=== PATIENT | female | born 1965 | race Caucasian/White ===

== ENCOUNTER 2017-08-01 16:56 | Emergency (ER) | payer MEDICAID ==
[~2017-08-01] VITALS: Ht 165.1 cm; Wt 177.0 kg
[2017-08-01 18:28] LABS: BASOPHILS % (AUTO) 0.4 % (0-1); EOSINOPHILS # (AUTO) 0.1 X10'3 (0-0.9); EOSINOPHILS % (AUTO) 0.8 % (0-6); HEMATOCRIT 41.2 % (35.0-45.0); HEMOGLOBIN 14.2 g/dl (12.0-16.0); LYMPHOCYTES # (AUTO) 1.7 X10'3 (1.1-4.8); LYMPHOCYTES % (AUTO) 17.8 % (21-51); MEAN CORPUSCULAR HEMOGLOBIN 29.3 PG (27.0-31.0); MEAN CORPUSCULAR HGB CONC 34.5 % (33.0-36.5); MEAN CORPUSCULAR VOLUME 84.9 FL (78-98); MEAN PLATELET VOLUME 7.5 FL (7.4-10.4); MONOCYTES # (AUTO) 0.5 X10'3 (0-0.9); MONOCYTES % (AUTO) 4.8 % (2-12); NEUTROPHILS # (AUTO) 7.4 X10'3 (1.8-7.7); NEUTROPHILS % (AUTO) 76.2 % (42-75); PLATELET COUNT 207 X10'3 (140-440); RED BLOOD COUNT 4.86 X10'6 (4.20-5.60); RED CELL DISTRIBUTION WIDTH 13.7 % (11.5-14.5); WHITE BLOOD COUNT 9.6 X10'3 (4.5-11.0)
[2017-08-01 18:34] VITALS: BP 167/83
[2017-08-01 18:38] LABS: PARTIAL THROMBOPLASTIN TIME 26 SECONDS (22-32); PROTHROMBIN TIME 10.3 SECONDS (9.0-12.0)
[2017-08-01 18:44] LABS: ALANINE AMINOTRANSFERASE 32 U/L (12-78); ALBUMIN 3.6 G/DL (3.4-5.0); ALBUMIN/GLOBULIN RATIO 0.9 (1.1-1.5); ALKALINE PHOSPHATASE 111 IU/L (46-116); ANION GAP 8 (8-16); ASPARTATE AMINO TRANSFERASE 8 U/L (10-37); BILIRUBIN,TOTAL 0.3 MG/DL (0.1-1.0); BLOOD UREA NITROGEN 15 MG/DL (7-18); BUN/CREATININE RATIO 21.7 (6.6-38.0); CALCIUM 9.9 MG/DL (8.5-10.1); CHLORIDE 104 MMOL/L (99-107); CREATININE 0.69 MG/DL (0.40-0.90); GLUCOSE 196 MG/DL (70-104); POTASSIUM 4.2 MMOL/L (3.5-5.1); SODIUM 141 MMOL/L (135-145); TOTAL CARBON DIOXIDE 28.9 MMOL/L (24-32); TOTAL PROTEIN 7.6 G/DL (6.4-8.2); eGFR 90 ML/MIN
== END 2017-08-01 19:19 | disposition home or self-care (01) ==
LOC: ER 16:58
DX: R00.2 Palpitations (principal); I10 Essential (primary) hypertension
CPT/HCPCS: 36415; 71045; 80053; 84484; 85025; 85610; 85730; 93005; 99285

== ENCOUNTER 2017-08-31 14:17 | Emergency (ER) | payer MEDICAID ==
[~2017-08-31] VITALS: Ht 162.6 cm; Wt 171.0 kg
[2017-08-31 14:23] VITALS: BP 143/68
[2017-08-31] MEDS ORDERED: TETanus/Pertussis (Acell)/Diphther VAC/PF (Tdap-Adult) 0.5ml syringe IM ONE (14:55)
[2017-08-31] MEDS ORDERED: LIDOcaine 1% 30ml preserv. free vial IJ ONE (14:55)
[2017-08-31] MEDS ORDERED: LIDOcaine 1%/PF 5ML 10 MG/ML VIAL IJ ONE (15:00)
== END 2017-08-31 15:43 | disposition home or self-care (01) ==
LOC: ER 14:20
DX: S90.851A Superficial foreign body, right foot, initial encounter (principal); M79.5 Residual foreign body in soft tissue; I10 Essential (primary) hypertension; G89.29 Other chronic pain; Z98.51 Tubal ligation status; W45.8XXA Other foreign body or object entering through skin, initial encounter; Y93.89 Activity, other specified; Y92.89 Other specified places as the place of occurrence of the external cause; Y99.8 Other external cause status
CPT/HCPCS: 10120; 90471; 90715; 99284; J2001

== ENCOUNTER 2020-01-26 16:27 | Emergency (ER) | payer MEDICAID ==
[~2020-01-26] VITALS: Ht 165.1 cm; Wt 172.7 kg
[2020-01-26 16:38] VITALS: BP 183/82
[2020-01-26] MEDS ORDERED: ketorolac trometh inj. 60 MG/2 ML VIAL IM ONE (16:55)
[2020-01-26] MEDS ORDERED: cyclobenzaprine 10mg tablet PO ONE (16:55)
[2020-01-26] MEDS ORDERED: CYCL-1 PO (17:30)
== END 2020-01-26 17:44 | disposition home or self-care (01) ==
LOC: ER 16:28
DX: M54.12 Radiculopathy, cervical region (principal); G89.29 Other chronic pain; R20.0 Anesthesia of skin; R53.1 Weakness; I10 Essential (primary) hypertension; Z98.51 Tubal ligation status; Z79.899 Other long term (current) drug therapy
CPT/HCPCS: 72040; 96372; 99283; J1885

== ENCOUNTER 2020-02-25 15:46 | Emergency (ER) | payer MEDICAID ==
[~2020-02-25] VITALS: Ht 162.6 cm; Wt 168.2 kg
[~2020-02-25 15:46] MED LIST: CYCL-1 PO
== END 2020-02-25 16:57 | disposition home or self-care (01) ==
LOC: ER 15:46
DX: S20.02XA Contusion of left breast, initial encounter (principal); I10 Essential (primary) hypertension; G89.29 Other chronic pain; M54.9 Dorsalgia, unspecified; Z98.51 Tubal ligation status; Z79.899 Other long term (current) drug therapy; X58.XXXA Exposure to other specified factors, initial encounter; Y93.89 Activity, other specified; Y92.89 Other specified places as the place of occurrence of the external cause; Y99.8 Other external cause status
CPT/HCPCS: 99281

== ENCOUNTER 2020-09-17 19:18 | Emergency (ER) | payer MEDICAID ==
[~2020-09-17] VITALS: Ht 162.6 cm; Wt 172.3 kg
[2020-09-17 19:25] VITALS: BP 150/81
[2020-09-17] MEDS ORDERED: CEPH250T PO (21:59)
[2020-09-17] MEDS ORDERED: cephalexin 250mg capsule PO ONE (22:05)
== END 2020-09-17 22:19 | disposition home or self-care (01) ==
LOC: ER 19:19
DX: N61.0 Mastitis without abscess (principal); I10 Essential (primary) hypertension; G89.29 Other chronic pain; Z98.51 Tubal ligation status
CPT/HCPCS: 99283

== ENCOUNTER 2022-03-07 03:00 | Inpatient (IN) | payer MEDICAID ==
[2022-03-07] VITALS (10 sets, daily range): BP systolic 107–123; BP diastolic 49–71
[~2022-03-07] VITALS: Ht 162.6 cm; Wt 140.0 kg
[~2022-03-07 03:00] MED LIST changes: -CYCL-1 PO; +LACT1CAP55 PO; +LISI-643 PO; +METF-517 PO
[2022-03-07] MEDS ORDERED: fentaNYL/PF 50MCG/1 ML 2ML syringe IV ONE (03:15)
[2022-03-07] MEDS ORDERED: normal saline 1000ML IV soln IVB ONE (03:15)
[2022-03-07] MEDS ORDERED: ondansetron/PF 4mg/2ml inj IV ONE (03:15)
--- NOTE | 2022-03-07 04:31 | NUR ---
DR HARE NOTIFIED UNABLE TO OBTAIN LINE AND LABS WITH NIKOLAY
[2022-03-07] MEDS ORDERED: morphine 4 MG/ML inj SYRINge IM ONE (04:40)
[2022-03-07 05:10] LABS: BASOPHILS # (AUTO) 0.1 X10'3 (0-0.2); BASOPHILS % (AUTO) 0.4 % (0-1); EOSINOPHILS # (AUTO) 0.1 X10'3 (0-0.9); EOSINOPHILS % (AUTO) 0.3 % (0-6); LYMPHOCYTES % (AUTO) 3.5 % (21-51); MEAN CORPUSCULAR HEMOGLOBIN 27.3 PG (27.0-31.0); MEAN CORPUSCULAR HGB CONC 29.3 g/dL (33.0-36.5); MEAN CORPUSCULAR VOLUME 93.1 FL (78-98); MEAN PLATELET VOLUME 6.6 FL (7.4-10.4); MONOCYTES # (AUTO) 1.3 X10'3 (0-0.9); MONOCYTES % (AUTO) 4.8 % (2-12); NEUTROPHILS # (AUTO) 25.7 X10'3 (1.8-7.7); PLATELET COUNT 345 X10'3 (140-440); RED BLOOD COUNT 1.93 X10'6 (4.20-5.60); RED CELL DISTRIBUTION WIDTH 19.1 % (11.5-14.5)
[2022-03-07 05:13] LABS: HEMOGLOBIN 5.3 g/dl (12.0-16.0); WHITE BLOOD COUNT 28.3 X10'3 (4.5-11.0)
[2022-03-07] MEDS ORDERED: piperacillin/tazo 3.375gm/50ml 50 ML IV ONE (05:15)
[2022-03-07] MEDS ORDERED: PRED20TA PO (05:29)
[2022-03-07] MEDS ORDERED: BECL7.3A INH (05:30)
[2022-03-07] MEDS ORDERED: FURO-150 PO (05:30)
[2022-03-07] MEDS ORDERED: ALBU90AE INH (05:30)
[2022-03-07 05:36] LABS: ALANINE AMINOTRANSFERASE 10 U/L (12-78); ALBUMIN 0.9 G/DL (3.4-5.0); ALBUMIN/GLOBULIN RATIO 0.3 (1.1-1.5); ALKALINE PHOSPHATASE 187 IU/L (46-116); ANION GAP 11 (8-16); ASPARTATE AMINO TRANSFERASE 10 U/L (10-37); BILIRUBIN,TOTAL 0.4 MG/DL (0.1-1.0); BLOOD UREA NITROGEN 31 MG/DL (7-18); BUN/CREATININE RATIO 23.7 (6.6-38.0); CALCIUM 8.5 MG/DL (8.5-10.1); CHLORIDE 95 MMOL/L (99-107); CREATININE 1.31 MG/DL (0.40-0.90); GLUCOSE 203 MG/DL (70-104); MAGNESIUM 1.8 MG/DL (1.5-2.4); SODIUM 123 MMOL/L (135-145); TOTAL CARBON DIOXIDE 17.4 MMOL/L (24-32); TOTAL PROTEIN 4.5 G/DL (6.4-8.2); eGFR 42 ML/MIN
[2022-03-07 05:44] LABS: POTASSIUM 6.1 MMOL/L (3.5-5.1)
[2022-03-07] MEDS ORDERED: sodium polystyrene sulfonate 15gm/60ml oral suspension PO ONE (05:45)
[2022-03-07] MEDS ORDERED: magnesium hydroxide 30ml (MOM) UD suspension PO PRN (05:50)
[2022-03-07] MEDS ORDERED: mag hydrox/Alum hydrox/simeth 30ml oral suspension PO PRN (05:50)
[2022-03-07] MEDS ORDERED: potassium Cl 20 mEq SR tablet PO PRN ×2 (05:50)
[2022-03-07] MEDS ORDERED: HYDROcodone/acetaminophen 5mg/325mg tablet PO PRN (05:50)
[2022-03-07] MEDS ORDERED: magnesium Cl slow-release 64mg tablet PO PRN (05:50)
[2022-03-07] MEDS ORDERED: ondansetron/PF 4mg/2ml inj IV PRN (05:50)
[2022-03-07] MEDS ORDERED: morphine 2 MG/ML inj. syringe IV PRN (05:50)
[2022-03-07] MEDS ORDERED: potassium Cl 40MEQ/1/2NS 520ml 520 ML IV PRN (05:50)
[2022-03-07] MEDS ORDERED: acetaminophen 325mg tablet PO PRN (05:50)
[2022-03-07] MEDS ORDERED: magnesium 4gm in 100ml NS 100 ML IV PRN (05:50)
[2022-03-07] MEDS ORDERED: insulin regular, human 10 units/0.1 ml syringe IV ONE (05:55)
[2022-03-07] MEDS ORDERED: dextrose 50%-water 50ml dispensing syringe IV ONE (05:55)
[2022-03-07] MEDS: normal saline 1000ml 1,000 ML IV SCH ×2 (06:09→16:03)
[2022-03-07 06:13] LABS: CLARITY,URINE SLIGHTLY CLOUDY (Clear); COLOR,URINE YELLOW (Yellow); GLUCOSE, URINE NEGATIVE (Neg); KETONES,URINE NEGATIVE (Neg); LEUKOCYTE ESTERASE ,URINE NEGATIVE (Neg); NITRITES, URINE NEGATIVE (Neg); OCCULT BLOOD,URINE NEGATIVE (Neg); PH,URINE 5.5 (4.8-8.0); PROTEIN,URINE NEGATIVE (Neg); UROBILINOGEN,URINE 0.2 E.U/dL (0.2-1.0)
[2022-03-07 06:16] LABS: TOTAL CELLS COUNTED 100
[2022-03-07 06:17] LABS: ANISOCYTOSIS 2+; PLATELET ESTIMATE NORMAL; POLYCHROMASIA FEW
[2022-03-07 06:18] LABS: UA COLLECTION TYPE STRAIGHT CATH
[2022-03-07 06:19] LABS: WBC,URINE 20-30 /HPF (0-4)
[2022-03-07 06:20] LABS: BACTERIA,URINE FEW /HPF (Neg); MUCUS STRANDS NONE SEEN /LPF (Neg); RBC,URINE NONE SEEN /HPF (0-2); SQUAMOUS EPITHELIAL CELL,UR FEW /LPF (FEW); WBC CLUMPS,URINE MODERATE /HPF (NEGATIVE)
[2022-03-07 06:21] LABS: FINE GRANULAR CAST 0-3 /LPF (NEGATIVE); YEAST FEW /HPF (NEGATIVE)
[2022-03-07 06:22] LABS: URIC ACID CRYSTALS 1+ /HPF (NEGATIVE)
--- NOTE | 2022-03-07 07:24 | NUR ---
0500 PT INCOT OF SOFT BROWN STOOL, PT CLEANED AND MARIO CARE PREFORMED
[2022-03-07] MEDS: K and/or MAG REPLACEMENT MC SCH ×2 (07:28→20:00)
[2022-03-07] MEDS: docusate sod 100mg capsule PO SCH ×2 (07:29→21:08)
[2022-03-07] MEDS: morphine 2 MG/ML inj. syringe IV PRN ×2 (07:30→16:03)
[2022-03-07] MEDS: heparin, porcine 5000 units/ml vial SQ SCH ×2 (07:30→21:11)
[2022-03-07] MEDS: fluticasone nasal spray 16GM bottle NS SCH ×2 (08:00→21:06)
[2022-03-07 09:19] LABS: ALBUMIN 0.9 G/DL (3.4-5.0); ANION GAP 12 (8-16); BLOOD UREA NITROGEN 31 MG/DL (7-18); BUN/CREATININE RATIO 19.7 (6.6-38.0); CALCIUM 7.9 MG/DL (8.5-10.1); CHLORIDE 100 MMOL/L (99-107); CREATININE 1.57 MG/DL (0.40-0.90); GLUCOSE 136 MG/DL (70-104); POTASSIUM 5.5 MMOL/L (3.5-5.1); SODIUM 128 MMOL/L (135-145); TOTAL CARBON DIOXIDE 16.1 MMOL/L (24-32); eGFR 34 ML/MIN
[2022-03-07] MEDS ORDERED: gentian violet 59ml topical solution TP ONE (11:35)
[2022-03-07] MEDS ORDERED: CEFD300C21 PO (14:37)
[2022-03-07] MEDS ORDERED: METF-900 PO (14:37)
[2022-03-07] MEDS ORDERED: FERR325T29 PO (14:37)
[2022-03-07] MEDS: piperacillin/tazo 3.375gm/50ml 50 ML IV SCH ×2 (16:03→22:57)
[2022-03-07 16:33] LABS: BASOPHILS # (AUTO) 0.1 X10'3 (0-0.2); BASOPHILS % (AUTO) 0.2 % (0-1); EOSINOPHILS % (AUTO) 0.2 % (0-6); HEMATOCRIT 22.4 % (35.0-45.0); LYMPHOCYTES # (AUTO) 1.4 X10'3 (1.1-4.8); LYMPHOCYTES % (AUTO) 4.9 % (21-51); MEAN CORPUSCULAR HEMOGLOBIN 26.7 PG (27.0-31.0); MEAN CORPUSCULAR HGB CONC 30.2 g/dL (33.0-36.5); MEAN CORPUSCULAR VOLUME 88.5 FL (78-98); MEAN PLATELET VOLUME 6.3 FL (7.4-10.4); MONOCYTES # (AUTO) 1.3 X10'3 (0-0.9); MONOCYTES % (AUTO) 4.8 % (2-12); NEUTROPHILS # (AUTO) 25.1 X10'3 (1.8-7.7); NEUTROPHILS % (AUTO) 89.9 % (42-75); PLATELET COUNT 236 X10'3 (140-440); RED BLOOD COUNT 2.53 X10'6 (4.20-5.60); RED CELL DISTRIBUTION WIDTH 19.3 % (11.5-14.5)
[2022-03-07 16:37] LABS: HEMOGLOBIN 6.8 g/dl (12.0-16.0)
[2022-03-07 16:38] LABS: WHITE BLOOD COUNT 27.9 X10'3 (4.5-11.0)
--- NOTE | 2022-03-07 23:42 | NUR ---
notified of pts critical lab result of gram positive cocci .New order is to start pt on vanco which should be dosed by pharmacy. Pharmacy has been notified.
[2022-03-08 02:00] VITALS: BP 109/50
[2022-03-08] MEDS: normal saline 1000ml 1,000 ML IV SCH ×3 (02:25→22:03)
[2022-03-08] MEDS: vancomycin/NS 1 GM ADD-VANTAGE 250 ML IV SCH ×3 (02:29→23:51)
--- NOTE | 2022-03-08 04:27 | NUR ---
notified again of pts 2nd and 3rd critical lab of gram positive cocci cluster .No new orders ,according to ' iv leonilao and andrei will cover it all.
[2022-03-08 06:00] VITALS: BP 104/46
[2022-03-08] MEDS: piperacillin/tazo 3.375gm/50ml 50 ML IV SCH ×2 (06:00→14:00)
--- NOTE | 2022-03-08 07:00 | NUR ---
Problems reprioritized. Patient report given, questions answered & plan of care reviewed with TIM MAYS.
[2022-03-08] MEDS: ferrous sulfate 325mg tablet PO SCH (07:07)
[2022-03-08] MEDS: fluticasone nasal spray 16GM bottle NS SCH ×2 (07:07→20:46)
[2022-03-08] MEDS: morphine 2 MG/ML inj. syringe IV PRN (07:08)
[2022-03-08 07:10] LABS: BASOPHILS % (AUTO) 0.2 % (0-1); EOSINOPHILS # (AUTO) 0.2 X10'3 (0-0.9); EOSINOPHILS % (AUTO) 1.1 % (0-6); HEMOGLOBIN 7.7 g/dl (12.0-16.0); LYMPHOCYTES # (AUTO) 0.9 X10'3 (1.1-4.8); LYMPHOCYTES % (AUTO) 4.2 % (21-51); MEAN CORPUSCULAR HEMOGLOBIN 27.7 PG (27.0-31.0); MEAN CORPUSCULAR HGB CONC 31.9 g/dL (33.0-36.5); MEAN CORPUSCULAR VOLUME 86.7 FL (78-98); MEAN PLATELET VOLUME 6.1 FL (7.4-10.4); MONOCYTES # (AUTO) 0.6 X10'3 (0-0.9); NEUTROPHILS % (AUTO) 91.5 % (42-75); PLATELET COUNT 193 X10'3 (140-440); RED BLOOD COUNT 2.77 X10'6 (4.20-5.60); RED CELL DISTRIBUTION WIDTH 18.1 % (11.5-14.5); WHITE BLOOD COUNT 20.8 X10'3 (4.5-11.0)
[2022-03-08 07:27] LABS: ALANINE AMINOTRANSFERASE 8 U/L (12-78); ALBUMIN 0.9 G/DL (3.4-5.0); ALBUMIN/GLOBULIN RATIO 0.3 (1.1-1.5); ALKALINE PHOSPHATASE 167 IU/L (46-116); ANION GAP 9 (8-16); ASPARTATE AMINO TRANSFERASE 11 U/L (10-37); BILIRUBIN,TOTAL 0.7 MG/DL (0.1-1.0); BLOOD UREA NITROGEN 32 MG/DL (7-18); BUN/CREATININE RATIO 20.4 (6.6-38.0); CHLORIDE 100 MMOL/L (99-107); CREATININE 1.57 MG/DL (0.40-0.90); GLUCOSE 97 MG/DL (70-104); MAGNESIUM 1.7 MG/DL (1.5-2.4); SODIUM 130 MMOL/L (135-145); TOTAL CARBON DIOXIDE 20.8 MMOL/L (24-32); TOTAL PROTEIN 4.1 G/DL (6.4-8.2); eGFR 34 ML/MIN
[2022-03-08] MEDS: K and/or MAG REPLACEMENT MC SCH ×2 (08:00→20:00)
[2022-03-08] MEDS: heparin, porcine 5000 units/ml vial SQ SCH ×2 (08:00→20:43)
[2022-03-08] MEDS: docusate sod 100mg capsule PO SCH ×2 (08:43→20:00)
[2022-03-08] MEDS ORDERED: morphine 2 MG/ML inj. syringe IV ONE (09:35)
[2022-03-08 11:00] VITALS: BP 101/61
--- NOTE | 2022-03-08 13:01 | NUR ---
PRESSURE ULCER EDUCATION: DEFINITION: A pressure ulcer is an area of skin that breaks down when you stay in one position too long. The constant pressure against the skin reduces the blood flow to that area and the affected tissue dies. CAUSES: "Being bedridden or in a wheelchair "Fragile skin "Having a chronic condition, such as diabetes or vascular disease "Inability to move certain parts of your body without assistance "Older age "Incontinence of urine or stool SYMPTOMS: "A reddened area that DOES NOT turn white when pressed on - this can be the beginning of a pressure ulcer "A blister, deep sore or a crater - these can be advanced pressure ulcers FIRST AID: "Relieve the pressure on this area "Keep the area clean and dry "Call your primary doctor if you see any of the above symptoms "DO NOT massage the area "DO NOT use a donut shaped or ring shaped pillow- these actually interfere with the blood flow and cause complications PREVENTION: "Check for pressure ulcers everyday "Change position at least every two hours to relieve pressure "Use items that help relieve pressure- pillows, sheepskin, foam padding, and powders. "Keep skin clean and dry "Eat healthy well balanced meals "Exercise daily IF YOU SEE ANY OF THESE SYMPTOMS WHILE IN THE HOSPITAL - TELL YOUR NURSE IMMEDIATELY. IF YOU SEE ANY OF THESE SYMPTOMS WHILE AT HOME OR HAVE ANY QUESTIONS OR CONCERNS ABOUT PRESSURE ULCERS - CALL YOUR PRIMARY DOCTOR IMMEDIATELY. Addendum: 03/08/22 at 1301 by Chacha Dietrich LVN Amended: Links added.
[2022-03-08] MEDS: HYDROcodone/acetaminophen 10/325mg tab PO PRN ×2 (13:08→20:43)
[2022-03-08 18:00] VITALS: BP 109/59
[2022-03-08 22:00] VITALS: BP 120/54
[2022-03-09] VITALS (10 sets, daily range): BP systolic 99–130; BP diastolic 43–63
[2022-03-09] MEDS: piperacillin/tazo 3.375gm/50ml 50 ML IV SCH ×4 (01:42→20:52)
[2022-03-09 06:33] LABS: EOSINOPHILS # (AUTO) 0.2 X10'3 (0-0.9); WHITE BLOOD COUNT 13.9 X10'3 (4.5-11.0)
[2022-03-09 06:36] LABS: BASOPHILS % (AUTO) 0.3 % (0-1); EOSINOPHILS % (AUTO) 1.5 % (0-6); LYMPHOCYTES % (AUTO) 7.5 % (21-51); MEAN CORPUSCULAR HEMOGLOBIN 27.8 PG (27.0-31.0); MEAN CORPUSCULAR HGB CONC 31.6 g/dL (33.0-36.5); MEAN PLATELET VOLUME 6.4 FL (7.4-10.4); MONOCYTES # (AUTO) 0.6 X10'3 (0-0.9); MONOCYTES % (AUTO) 4.4 % (2-12); NEUTROPHILS % (AUTO) 86.3 % (42-75); PLATELET COUNT 155 X10'3 (140-440); RED BLOOD COUNT 2.39 X10'6 (4.20-5.60); RED CELL DISTRIBUTION WIDTH 17.9 % (11.5-14.5)
[2022-03-09 06:46] LABS: HEMOGLOBIN 6.7 g/dl (12.0-16.0)
[2022-03-09 06:57] LABS: ALANINE AMINOTRANSFERASE 7 U/L (12-78); ALBUMIN 0.8 G/DL (3.4-5.0); ALBUMIN/GLOBULIN RATIO 0.3 (1.1-1.5); ALKALINE PHOSPHATASE 153 IU/L (46-116); ANION GAP 7 (8-16); ASPARTATE AMINO TRANSFERASE 12 U/L (10-37); BILIRUBIN,TOTAL 0.5 MG/DL (0.1-1.0); BLOOD UREA NITROGEN 30 MG/DL (7-18); BUN/CREATININE RATIO 21.1 (6.6-38.0); CALCIUM 7.8 MG/DL (8.5-10.1); CHLORIDE 101 MMOL/L (99-107); CREATININE 1.42 MG/DL (0.40-0.90); GLUCOSE 102 MG/DL (70-104); MAGNESIUM 1.7 MG/DL (1.5-2.4); POTASSIUM 4.6 MMOL/L (3.5-5.1); SODIUM 128 MMOL/L (135-145); TOTAL CARBON DIOXIDE 20.4 MMOL/L (24-32); TOTAL PROTEIN 3.9 G/DL (6.4-8.2); eGFR 38 ML/MIN
--- NOTE | 2022-03-09 06:59 | NUR ---
PAGE SENT PAGER ID: [phone] MESSAGE: [id number], ELLI MARX, CRITICAL LABS, HGB 6.7, HCT 21. ORDERS FOR TRANSFUSION <7. THANK YOU, XI [id number]
[2022-03-09] MEDS: K and/or MAG REPLACEMENT MC SCH ×2 (08:00→20:00)
[2022-03-09] MEDS: ferrous sulfate 325mg tablet PO SCH (09:24)
[2022-03-09] MEDS: docusate sod 100mg capsule PO SCH ×2 (09:25→19:51)
[2022-03-09] MEDS: fluticasone nasal spray 16GM bottle NS SCH ×2 (09:25→20:52)
[2022-03-09] MEDS: heparin, porcine 5000 units/ml vial SQ SCH ×2 (09:29→20:54)
[2022-03-09] MEDS: normal saline 1000ml 1,000 ML IV SCH ×2 (09:32→17:50)
--- NOTE | 2022-03-09 11:06 | NUR ---
blood transfusion started at 1102
[2022-03-09] MEDS: HYDROcodone/acetaminophen 10/325mg tab PO PRN (11:20)
[2022-03-09] MEDS ORDERED: VANCOMYCIN LEVEL IV ONE (11:30)
--- NOTE | 2022-03-09 11:30 | NUR ---
STEILACOOM GIVEN, DOCUMENTED BUT NOT SAVED. ES WAS IN AND EMPTIED BINS, NO WRAPPINGS FOUND. WILL NOTIFY CHARGE FOR ADVICE.
[2022-03-09 13:44] LABS: HEMATOCRIT 25.1 % (35.0-45.0); HEMOGLOBIN 7.9 g/dl (12.0-16.0); MEAN CORPUSCULAR HGB CONC 31.3 g/dL (33.0-36.5); MEAN CORPUSCULAR VOLUME 89.5 FL (78-98); MEAN PLATELET VOLUME 6.3 FL (7.4-10.4); PLATELET COUNT 148 X10'3 (140-440); RED BLOOD COUNT 2.81 X10'6 (4.20-5.60); RED CELL DISTRIBUTION WIDTH 18.5 % (11.5-14.5); WHITE BLOOD COUNT 15.9 X10'3 (4.5-11.0)
--- NOTE | 2022-03-09 13:45 | NUR ---
NOTIFIED PHARMACY THAT [facility] IS STILL RUNNING D/T BLOOD TRANSFUSION, AND WILL HANG VANCO NEXT. PHARMACIST RECOMMENDED SKIPPING 1400 [facility] DOSE.
--- NOTE | 2022-03-09 14:37 | NUR ---
PAGE SENT PAGER ID: [phone] MESSAGE: [id number], ELLI MARX, HGB 7.9, HCT 25.1. THANK YOU, XI [id number]
--- NOTE | 2022-03-09 14:59 | NUR ---
PAGE SENT TO MD. BLACK TROUGH 21.1
[2022-03-09] MEDS ORDERED: vancomycin/NS 1 GM ADD-VANTAGE 250 ML IV SCH (16:00)
[2022-03-09] MEDS: VANCOMYCIN 750MG IV in NS 250 ML IV SCH (16:27)
--- NOTE | 2022-03-09 18:14 | NUR ---
Problems reprioritized. Patient report given, questions answered & plan of care reviewed with TABATHA BARKER.
[2022-03-09] MEDS: morphine 2 MG/ML inj. syringe IV PRN (20:53)
[2022-03-10] VITALS (9 sets, daily range): BP systolic 101–123; BP diastolic 48–62
[2022-03-10] MEDS: HYDROcodone/acetaminophen 10/325mg tab PO PRN ×4 (00:26→21:10)
[2022-03-10] MEDS: normal saline 1000ml 1,000 ML IV SCH ×3 (03:21→23:50)
[2022-03-10] MEDS: VANCOMYCIN 750MG IV in NS 250 ML IV SCH ×2 (04:07→16:58)
[2022-03-10] MEDS: piperacillin/tazo 3.375gm/50ml 50 ML IV SCH ×3 (04:08→20:25)
[2022-03-10 04:36] LABS: BASOPHILS # (AUTO) 0.1 X10'3 (0-0.2); BASOPHILS % (AUTO) 0.5 % (0-1); EOSINOPHILS # (AUTO) 0.2 X10'3 (0-0.9); EOSINOPHILS % (AUTO) 1.2 % (0-6); HEMATOCRIT 23.1 % (35.0-45.0); HEMOGLOBIN 7.3 g/dl (12.0-16.0); MEAN CORPUSCULAR HEMOGLOBIN 28.4 PG (27.0-31.0); MEAN CORPUSCULAR HGB CONC 31.5 g/dL (33.0-36.5); MEAN CORPUSCULAR VOLUME 90.2 FL (78-98); MEAN PLATELET VOLUME 6.5 FL (7.4-10.4); MONOCYTES # (AUTO) 0.6 X10'3 (0-0.9); MONOCYTES % (AUTO) 4.8 % (2-12); NEUTROPHILS # (AUTO) 11.2 X10'3 (1.8-7.7); NEUTROPHILS % (AUTO) 85.5 % (42-75); PLATELET COUNT 136 X10'3 (140-440); RED BLOOD COUNT 2.56 X10'6 (4.20-5.60); WHITE BLOOD COUNT 13.1 X10'3 (4.5-11.0)
[2022-03-10 04:46] LABS: ALANINE AMINOTRANSFERASE 9 U/L (12-78); ALBUMIN 0.8 G/DL (3.4-5.0); ALBUMIN/GLOBULIN RATIO 0.3 (1.1-1.5); ALKALINE PHOSPHATASE 145 IU/L (46-116); ANION GAP 7 (8-16); ASPARTATE AMINO TRANSFERASE 12 U/L (10-37); BILIRUBIN,TOTAL 0.4 MG/DL (0.1-1.0); BLOOD UREA NITROGEN 23 MG/DL (7-18); BUN/CREATININE RATIO 19.8 (6.6-38.0); CALCIUM 7.8 MG/DL (8.5-10.1); CHLORIDE 102 MMOL/L (99-107); CREATININE 1.16 MG/DL (0.40-0.90); GLUCOSE 85 MG/DL (70-104); MAGNESIUM 1.6 MG/DL (1.5-2.4); POTASSIUM 4.5 MMOL/L (3.5-5.1); SODIUM 130 MMOL/L (135-145); TOTAL CARBON DIOXIDE 20.9 MMOL/L (24-32); eGFR 48 ML/MIN
[2022-03-10] MEDS: K and/or MAG REPLACEMENT MC SCH ×2 (08:00→20:00)
[2022-03-10] MEDS: docusate sod 100mg capsule PO SCH ×2 (08:00→20:00)
[2022-03-10] MEDS: fluticasone nasal spray 16GM bottle NS SCH ×2 (08:26→20:00)
[2022-03-10] MEDS: ferrous sulfate 325mg tablet PO SCH (08:26)
[2022-03-10] MEDS: heparin, porcine 5000 units/ml vial SQ SCH ×2 (08:27→20:26)
--- NOTE | 2022-03-10 08:30 | NUR ---
0830 Pt dressings changed
--- NOTE | 2022-03-10 10:18 | NUR ---
Alvarez consult: Pt admit DX sepsis secondary to infected fungated L breast mass/malignancy, LUE DVT, metabolic acidosis, hyponatremia, and hyperkalemia per EMR. Alvarez 12 w/ full thickness L chest 32cm x 40cm mass per WOC note. Noted hx T2DM on metformin and prednisone at home w/ last A1C 5.6% 01/12/22 per EMR; MAXIMILIANO paged MD regarding liberalizing to regular diet given A1C if agreeable. Pt PO 100% initial carb controlled meals meeting 100% minimum protein and 87% minimum estimated kcal needs. Change to regular diet w/ current PO would meet estimated needs though pt would benefit from Renny smoothie BID for wound healing; MD notified. LBM 03/09 receiving routine colace. Will continue to monitor. Rec: 1. liberalize to regular diet; on carb controlled last A1C 5.6% 01/12/22 2. Renny smoothie BIDBD for wound healing; pending MD verification in EMR 3. routine bowel care 4. MVI for wound healing 5. scaled wt this admit; subsequent weekly wts Addendum: 03/10/22 at [address] Amended: Links added.
--- NOTE | 2022-03-10 17:22 | NUR ---
pt cleaned up. linen change complete. dressing change complete.
[2022-03-10] MEDS ORDERED: JUVEN Smoothie Arginine/Glut./Ca2+Bmb (Juven 19.3pkt) 240ml cup PO SCH (17:30)
[2022-03-10 20:42] LABS: HEMATOCRIT 26.9 % (35.0-45.0); HEMOGLOBIN 8.8 g/dl (12.0-16.0); MEAN CORPUSCULAR HGB CONC 32.5 g/dL (33.0-36.5); MEAN CORPUSCULAR VOLUME 89.2 FL (78-98); MEAN PLATELET VOLUME 6.6 FL (7.4-10.4); PLATELET COUNT 155 X10'3 (140-440); RED BLOOD COUNT 3.02 X10'6 (4.20-5.60); RED CELL DISTRIBUTION WIDTH 17.3 % (11.5-14.5); WHITE BLOOD COUNT 15.3 X10'3 (4.5-11.0)
[2022-03-11 03:27] LABS: BASOPHILS % (AUTO) 0.3 % (0-1); EOSINOPHILS # (AUTO) 0.1 X10'3 (0-0.9); EOSINOPHILS % (AUTO) 0.7 % (0-6); HEMATOCRIT 25.2 % (35.0-45.0); HEMOGLOBIN 8.1 g/dl (12.0-16.0); LYMPHOCYTES # (AUTO) 1.3 X10'3 (1.1-4.8); LYMPHOCYTES % (AUTO) 9.3 % (21-51); MEAN CORPUSCULAR HEMOGLOBIN 28.7 PG (27.0-31.0); MEAN CORPUSCULAR HGB CONC 32.2 g/dL (33.0-36.5); MEAN CORPUSCULAR VOLUME 89.1 FL (78-98); MEAN PLATELET VOLUME 6.5 FL (7.4-10.4); MONOCYTES # (AUTO) 0.7 X10'3 (0-0.9); MONOCYTES % (AUTO) 4.9 % (2-12); NEUTROPHILS # (AUTO) 11.8 X10'3 (1.8-7.7); NEUTROPHILS % (AUTO) 84.8 % (42-75); PLATELET COUNT 151 X10'3 (140-440); RED BLOOD COUNT 2.82 X10'6 (4.20-5.60); RED CELL DISTRIBUTION WIDTH 17.8 % (11.5-14.5); WHITE BLOOD COUNT 13.9 X10'3 (4.5-11.0)
[2022-03-11] MEDS ORDERED: VANCOMYCIN LEVEL IV ONE (03:30)
[2022-03-11 03:39] LABS: ALANINE AMINOTRANSFERASE 8 U/L (12-78); ALBUMIN 0.9 G/DL (3.4-5.0); ALBUMIN/GLOBULIN RATIO 0.3 (1.1-1.5); ALKALINE PHOSPHATASE 146 IU/L (46-116); ANION GAP 6 (8-16); ASPARTATE AMINO TRANSFERASE 12 U/L (10-37); BILIRUBIN,TOTAL 0.5 MG/DL (0.1-1.0); BLOOD UREA NITROGEN 20 MG/DL (7-18); BUN/CREATININE RATIO 19.2 (6.6-38.0); CALCIUM 7.8 MG/DL (8.5-10.1); CHLORIDE 103 MMOL/L (99-107); CREATININE 1.04 MG/DL (0.40-0.90); GLUCOSE 93 MG/DL (70-104); MAGNESIUM 1.5 MG/DL (1.5-2.4); POTASSIUM 4.2 MMOL/L (3.5-5.1); SODIUM 131 MMOL/L (135-145); TOTAL CARBON DIOXIDE 22.2 MMOL/L (24-32); TOTAL PROTEIN 4.1 G/DL (6.4-8.2); eGFR 55 ML/MIN
[2022-03-11 03:52] LABS: VANCOMYCIN,TROUGH 25.9 UG/ML (6.0-14.0)
[2022-03-11] MEDS: piperacillin/tazo 3.375gm/50ml 50 ML IV SCH (04:28)
[2022-03-11 06:30] VITALS: BP 121/53
[2022-03-11] MEDS ORDERED: FERR325T29 PO (07:44)
[2022-03-11] MEDS ORDERED: HYDR-3972 PO (07:44)
[2022-03-11] MEDS ORDERED: VITC500T PO (07:44)
[2022-03-11] MEDS ORDERED: ASPI-611 PO (07:45)
[2022-03-11] MEDS ORDERED: LINE600T11 CORPAK (07:47)
[2022-03-11] MEDS: HYDROcodone/acetaminophen 10/325mg tab PO PRN (07:48)
[2022-03-11] MEDS: ferrous sulfate 325mg tablet PO SCH (07:48)
[2022-03-11] MEDS: docusate sod 100mg capsule PO SCH (07:48)
[2022-03-11] MEDS: fluticasone nasal spray 16GM bottle NS SCH (07:49)
[2022-03-11] MEDS: heparin, porcine 5000 units/ml vial SQ SCH (08:00)
[2022-03-11] MEDS: K and/or MAG REPLACEMENT MC SCH (08:00)
--- NOTE | 2022-03-11 09:54 | NUR ---
Called son Tone [phone]: advised that pt has d/c ppwk. Will get with CM for transportation.
[2022-03-11] MEDS: normal saline 1000ml 1,000 ML IV SCH (10:09)
[2022-03-11 10:30] VITALS: BP 117/57
--- NOTE | 2022-03-11 12:03 | NUR ---
Pt stable for d/c per MD orders. All d/c ppwk rev;d with patient and she had the opportunity to ask questions and get answers. port a cath was de-accessed by KRYSTLE AGGARWAL with 2000 unit heparin per order. All personal belongings were sent with patient (4 bags total). New RX was sent to [facility]. [facility] Tele box removed and returned to [employer] monitor.
[2022-03-11] MEDS ORDERED: VANCOMYCIN 750MG IV in NS 250 ML IV SCH (16:00)
[2022-03-14] MEDS ORDERED: VANCOMYCIN LEVEL IV ONE (15:30)
== END 2022-03-11 11:10 | disposition home health service (06) | DRG 720 ==
LOC: ER 03:01 → ED HOLD 05:54 → EDBEDREQ 18:26 → PCU 3S 19:46
PROVIDERS: ADMIT Family Medicine; ATTEND Family Medicine
PROC: 30233N1 Transfusion of Nonautologous Red Blood Cells into Peripheral Vein, Percutaneous Approach (ICD-10-PCS; principal; 2022-03-07)
DX: A41.9 Sepsis, unspecified organism (principal); E87.20 Acidosis, unspecified; N17.9 Acute kidney failure, unspecified; I82.622 Acute embolism and thrombosis of deep veins of left upper extremity; E87.1 Hypo-osmolality and hyponatremia; D64.9 Anemia, unspecified; E87.5 Hyperkalemia; I10 Essential (primary) hypertension; Z66 Do not resuscitate; Z83.3 Family history of diabetes mellitus; Z85.3 Personal history of malignant neoplasm of breast; Z51.5 Encounter for palliative care; Z98.51 Tubal ligation status
CPT/HCPCS: 36415; 36430; 71045; 80048; 80053; 80202; 81001; 82948; 83605; 83735; 84132; 84145; 85007; 85025; 85027; 86644; 86885; 86900; 86901; 86920; 86945; 87040; 87077; 87081; 87088; 87186; 93005; 93971; 99285; A4353; A4615; A6223; A6253; A6258; A6449; G0378; J1644; J1815; J2270; J2405; J2543; J3010; J3370; J3490; J7030; J7040; J7050; P9016

== ENCOUNTER 2022-03-12 21:36 | Inpatient (IN) | payer MEDICAID ==
[~2022-03-12] VITALS: Ht 165.1 cm; Wt 136.4 kg
[~2022-03-12 21:36] MED LIST changes: +ASPI-611 PO; +FERR325T29 PO; +HYDR-3972 PO; -LACT1CAP55 PO; +LINE600T11 CORPAK; -LISI-643 PO; -METF-517 PO; +METF-900 PO; +VITC500T PO
[2022-03-12] MEDS ORDERED: morphine 2 MG/ML inj. syringe IV ONE (23:05)
[2022-03-13] MEDS ORDERED: magnesium hydroxide 30ml (MOM) UD suspension PO PRN (00:05)
[2022-03-13] MEDS ORDERED: mag hydrox/Alum hydrox/simeth 30ml oral suspension PO PRN (00:05)
[2022-03-13] MEDS ORDERED: ondansetron/PF 4mg/2ml inj IV PRN (00:05)
[2022-03-13] MEDS ORDERED: acetaminophen 325mg tablet PO PRN (00:05)
[2022-03-13] MEDS ORDERED: normal saline 1000ml 1,000 ML IV SCH (00:05)
--- NOTE | 2022-03-13 01:06 | NUR ---
SPOKE WITH DR FAYE AND DR DE LUNA ABOUT LABS FOR THE PT. BOTH DOCTORS AGREED THAT SHE DOES NOT NEED LAB WORK AND WOULD BE ADMITTED ON COMFORT CARE
--- NOTE | 2022-03-13 05:07 | NUR ---
PT STATED SHE DECIDED SHE WOULD LIKE TO HAVE ANTIBIOTICS, AND THAT SHE WOULD LIKE TO HAVE LAB WORK DRAWN. MD CALLED AND CBC, CMP ORDERED
[2022-03-13] MEDS: morphine 2 MG/ML inj. syringe IV PRN ×2 (05:54→15:23)
[2022-03-13 06:11] LABS: BASOPHILS % (AUTO) 0.2 % (0-1); EOSINOPHILS % (AUTO) 0 % (0-6); HEMATOCRIT 29.5 % (35.0-45.0); HEMOGLOBIN 9.3 g/dl (12.0-16.0); LYMPHOCYTES # (AUTO) 0.9 X10'3 (1.1-4.8); MEAN CORPUSCULAR HEMOGLOBIN 28.4 PG (27.0-31.0); MEAN CORPUSCULAR HGB CONC 31.5 g/dL (33.0-36.5); MEAN CORPUSCULAR VOLUME 90.1 FL (78-98); MEAN PLATELET VOLUME 6.6 FL (7.4-10.4); MONOCYTES # (AUTO) 1.2 X10'3 (0-0.9); MONOCYTES % (AUTO) 3.9 % (2-12); NEUTROPHILS # (AUTO) 27.7 X10'3 (1.8-7.7); NEUTROPHILS % (AUTO) 92.9 % (42-75); PLATELET COUNT 258 X10'3 (140-440); RED BLOOD COUNT 3.27 X10'6 (4.20-5.60); RED CELL DISTRIBUTION WIDTH 18.3 % (11.5-14.5)
[2022-03-13 06:18] LABS: ALANINE AMINOTRANSFERASE 10 U/L (12-78); ALBUMIN/GLOBULIN RATIO 0.3 (1.1-1.5); ALKALINE PHOSPHATASE 158 IU/L (46-116); ANION GAP 6 (8-16); ASPARTATE AMINO TRANSFERASE 9 U/L (10-37); BILIRUBIN,TOTAL 0.4 MG/DL (0.1-1.0); BLOOD UREA NITROGEN 25 MG/DL (7-18); BUN/CREATININE RATIO 18.7 (6.6-38.0); CALCIUM 9.3 MG/DL (8.5-10.1); CHLORIDE 101 MMOL/L (99-107); CREATININE 1.34 MG/DL (0.40-0.90); GLUCOSE 159 MG/DL (70-104); POTASSIUM 5.4 MMOL/L (3.5-5.1); SODIUM 126 MMOL/L (135-145); TOTAL PROTEIN 4.7 G/DL (6.4-8.2); eGFR 41 ML/MIN
[2022-03-13 06:26] LABS: WHITE BLOOD COUNT 29.9 X10'3 (4.5-11.0)
[2022-03-13] MEDS: docusate sod 100mg capsule PO SCH ×2 (07:41→20:00)
[2022-03-13] MEDS ORDERED: linezolid 600mg tablet PO SCH (08:00)
[2022-03-13 08:26] LABS: ANISOCYTOSIS 2+; PLATELET ESTIMATE NORMAL; TOTAL CELLS COUNTED 100
--- NOTE | 2022-03-13 10:19 | NUR ---
DR. RIGGINS, BETTY CASE MANAGEMENT, MÓNICA ROSS, AND PRIMARY RN TING ALL AT BEDSIDE MD DISCUSSED COMFORT CARE WITH PT. PT VERBALLY AGREES TO DNR W/COMFORT. MD TO CHANGE ORDERS, MEDICAL TREATMENT WILL FOCUS ON PATIENT COMFORT AT THIS TIME.
[2022-03-13] MEDS ORDERED: ALBU90AE PO (10:33)
[2022-03-13] MEDS ORDERED: DOCU-345 PO (10:33)
[2022-03-13] MEDS ORDERED: FURO20TA4 PO (10:33)
[2022-03-13] MEDS ORDERED: BECL10.6 PO (10:33)
[2022-03-13] MEDS ORDERED: LORazepam 2 mg/ml vial IV PRN (13:55)
[2022-03-13] MEDS ORDERED: morphine ORAL 5MG/0.25 ML (Conc. morphine) oral syringe PO PRN (13:55)
[2022-03-13] MEDS ORDERED: morphine 10mg/0.5ml (conc. morphine) oral syringe PO PRN (13:59)
--- NOTE | 2022-03-13 16:39 | NUR ---
PT LINEN CHANGED. PT TURNED TO RIGHT SIDE. DRESSING CHANGE.
--- NOTE | 2022-03-13 18:41 | NUR ---
[facility] TO DATA SOFTWARE ENGINEER PT TOMORROW [id number]
--- NOTE | 2022-03-13 20:30 | NUR ---
Drsg changed to breast
[2022-03-13] MEDS: HYDROcodone/acetaminophen 10/325mg tab PO PRN (20:50)
--- NOTE | 2022-03-13 23:50 | NUR ---
pt arrived to floor in bed. oriented to room. skin check complete. call light in reach.
[2022-03-14 00:22] VITALS: BP 95/52
[2022-03-14] MEDS ORDERED: normal saline 1000ml 1,000 ML IV SCH (00:30)
--- NOTE | 2022-03-14 01:10 | NUR ---
placed inside-out attends under left arm to catch drainage from breast tumor. pt states "yes, that's what my son does all the time." pt had small brown sticky bowel movement on bedpan
[2022-03-14] MEDS: HYDROcodone/acetaminophen 10/325mg tab PO PRN ×3 (02:15→10:45)
--- NOTE | 2022-03-14 02:24 | NUR ---
dressing changed. pt states "when it starts to stick too bad it's time to change it." placed new abd pads on, cleaned outside edge with betadine, and placed 4 new abd pads on tumor area. noted air moving through tumor and some bubbles on surface. center of tumor area is gamboa and black with keli bloody areas as well. replaced towel. some drainage on edge of port a cath dressing but not compromised at this time. will continue to monitor. norco given for pain.
--- NOTE | 2022-03-14 06:17 | NUR ---
reported to days. noted pt time for pain medication now. will try to give to patient before I leave.
--- NOTE | 2022-03-14 06:31 | NUR ---
Patient in room [facility] 352. I have received report from CHUY MAYS and had the opportunity to ask questions and assume patient care.
[2022-03-14] MEDS ORDERED: guaiFENesin ER 600mg tablet PO SCH (08:00)
[2022-03-14] MEDS: docusate sod 100mg capsule PO SCH (08:44)
--- NOTE | 2022-03-14 09:00 | NUR ---
pt is comfort care vitals were to be taken at 11 am pt left with ambulance staff.
[2022-03-14] MEDS ORDERED: heparin sodium, porcine/PF 100unit/ml 5ML syringe IV ONE (10:00)
--- NOTE | 2022-03-14 10:19 | NUR ---
DM/Rodrick/Alvarez Consults: Pt now DNR w/ comfort care A1C 5.6% on regular diet w/ zyvox cancelled per EMR. Will follow per comfort measures. Rec: 1. continue regular diet per MD; honor food preferences 2. bowel care per comfort measures Addendum: 03/14/22 at [address] Amended: Links added.
--- NOTE | 2022-03-14 10:30 | NUR ---
was performing would care and wound care nurse came in the room. we were prepping pt for discharge. wound pictures are taken and the wound care nurse put them in the chart per on discharge
--- NOTE | 2022-03-14 10:35 | NUR ---
Deaccessed cathleen cath per protocol with 10ml of NS and 5ml of 100:1ml of Heparin Flush. Extension tubing taken off needle intact. Pt tolerated procedure well. Bandaide applied to cathleen cath site.
--- NOTE | 2022-03-14 11:44 | NUR ---
pt was stable for discharge, she went home on hospice with [place], her wound care was done and pictures taken before DC, port a cath was de accessed per md by charge nurse, all belongings taken with pt, she was picked up by [facility] and left on a gurney to home with [facility] staff in an ambulance.
== END 2022-03-14 10:48 | disposition hospice, home (50) | DRG 144 ==
LOC: ER 21:37 → ED HOLD 03-13 00:07 → SUR 3N 03-13 23:35
PROVIDERS: ADMIT Internal Medicine; ATTEND Family Medicine
DX: R06.03 Acute respiratory distress (principal); C50.919 Malignant neoplasm of unspecified site of unspecified female breast; Z51.5 Encounter for palliative care; Z66 Do not resuscitate; G47.30 Sleep apnea, unspecified; I10 Essential (primary) hypertension; Z83.3 Family history of diabetes mellitus; G89.29 Other chronic pain; M54.9 Dorsalgia, unspecified; Z98.51 Tubal ligation status; Z79.899 Other long term (current) drug therapy; Z79.82 Long term (current) use of aspirin
CPT/HCPCS: 71045; 80053; 85007; 85025; 87081; 96374; 99285; A6253; A6258; A6449; G0378; J1642; J2270; J7030